=== PATIENT | male | born 1965 | race Caucasian/White ===

== ENCOUNTER 2021-05-09 06:26 | Day surgery (SDC) | payer OTHER ==
[2021-05-06 16:28] VITALS: BMI 28.5
[~2021-05-09 06:26] MED LIST: DEXAMETHASONE SOD PHOSPHATE 4 MG/ML 1 ML VIAL IV ONE; HYDROmorphone 0.5 MG/0.5 ML SYRINGE IVP PRN; LACTATED RINGERS 1,000 ML IV SCH; LIDOCAINE 1% (10MG/ML) FOR IV START INTRADERMA PRN; MIDAZOLAM 2 MG/2 ML VIAL IV PRN; ONDANSETRON 4 MG/2 ML VIAL IVP ONE; Pre Op ABX Message 1 EACH MISC MISCELLANE ONE
[2021-05-09 06:56] VITALS: TEMP 97.5
[2021-05-09] MEDS ORDERED: DEXTROSE 50% SYRINGE 50 ML IVP ONE (07:14)
[2021-05-09 07:19] LABS: Glucose,Whole Blood 69 mg/dL (75-99)
[2021-05-09] MEDS ORDERED: MIDAZOLAM 2 MG/2 ML VIAL ONE (07:20)
[2021-05-09] MEDS ORDERED: PROPOFOL 10 MG/ML 20 ML VIAL IV ONE (07:20)
[2021-05-09] MEDS ORDERED: fentaNYL (PF) 50 MCG/ML 2 ML AMP ONE (07:20)
[2021-05-09] MEDS ORDERED: diphenhydrAMINE 50 MG/ML 1 ML VIAL ONE (07:20)
[2021-05-09 07:23] LABS: Glucose,Whole Blood 92 mg/dL (75-99)
[2021-05-09] MEDS ORDERED: BUPIVACAINE (PF) 0.25% 30 ML VIAL INTRAARTIC ONE (07:32)
--- NOTE | 2021-05-09 08:07 | P.OP ---
Date of Procedure: 05/09/21 Preoperative Diagnosis: 1. Chronic osteomyelitis right foot 2. Charcot arthropathy right foot Postoperative Diagnosis: 1. Same 2. Same Procedure(s) Performed: Bone biopsy of first tarsometatarsal joint right foot Implants: None Anesthesia: MAC, local Surgeon: Joe Mckay Estimated Blood Loss (ml): 2 Pathology: other (Bone biopsy for culture and pathology evaluation right foot) Condition: stable Disposition: PACU Indications for Procedure: Patient has history of diabetes with peripheral neuropathy. The patient was on long-term IV antibiotics with a PICC line for possible osteomyelitis of the right foot. X-ray showed degenerative changes and bony erosions at the conjoining surfaces of the first tarsometatarsal joint right foot. Bone biopsy was scheduled to rule out osteomyelitis versus Charcot arthropathy Description of Procedure: The patient was brought into the operating room placed on table supine position. Timeout was taken to confirm correct patient identifiers, correct site of surgery, and correct procedure. When the room was in agreement the patient was placed under IV sedation. 15 mL of 0.25% Marcaine was injected as a medial midfoot block. The right foot was prepped and draped usual manner. Under fluoroscopic visualization the first tarsometatarsal joint was identified with a metallic marker. Small incision was made through the skin and bluntly dissected down to level joint. A bone biopsy punch was then used to take a large core sample of both the base of the first metatarsal as well as the conjoining surfaces of the medial cuneiform. Samples will be sent for culture and sensit ivity as well as pathology evaluation. Wound is thoroughly irrigated and incision closed with 3-0 nylon. Nonadherent gauze and a dry sterile dressing applied to the right foot. The patient tolerated above procedure and anesthesia well and went to recovery vital signs stable.
[2021-05-09 08:08] LABS: Glucose,Whole Blood 92 mg/dL (75-99)
[2021-05-09 08:45] VITALS: BP 155/78; PULSE 70; RESP 16
== END 2021-05-09 09:16 | disposition home or self-care (01) ==
LOC: OR 06:26
PROVIDERS: ATTEND Podiatrist
DX: M86.671 Other chronic osteomyelitis, right ankle and foot (principal); M14.671 Charcot's joint, right ankle and foot; I10 Essential (primary) hypertension; R00.2 Palpitations; R45.0 Nervousness; E10.9 Type 1 diabetes mellitus without complications; Z82.49 Family history of ischemic heart disease and other diseases of the circulatory system; Z97.2 Presence of dental prosthetic device (complete) (partial); E78.5 Hyperlipidemia, unspecified; Z87.891 Personal history of nicotine dependence; Z79.899 Other long term (current) drug therapy; F41.9 Anxiety disorder, unspecified; F32.A Depression, unspecified; Z79.4 Long term (current) use of insulin; Z79.84 Long term (current) use of oral hypoglycemic drugs; Z98.890 Other specified postprocedural states
CPT/HCPCS: 88307; 88311; 87070; 87205; 87075; 20220; J2250; J1200; J1100; J2405; J3010; J2704

== ENCOUNTER 2021-09-21 08:39 | Emergency (ER) | payer MEDICARE, OTHER ==
[2021-09-21 08:43] VITALS: RESP 18; TEMP 98.1
[2021-09-21] MEDS ORDERED: KETOROLAC 15 MG/ML 1 ML VIAL IM STA (08:53)
[2021-09-21] MEDS ORDERED: ACETAMINOPHEN TAB 325 MG TAB PO STA (08:53)
[2021-09-21 08:56] LABS: Glucose,Whole Blood 215 mg/dL (70-110)
--- NOTE | 2021-09-21 08:57 | ED ---
General Adult HPI - General Chief complaint: Upper Respiratory Infection Stated complaint: covid symptoms Time Seen by Provider: 09/21/21 08:46 Source: patient, RN notes reviewed, old records reviewed Mode of arrival: ambulatory Limitations: no limitations - History of Present Illness Initial comments: 56-year-old male presents to the emergency room with complaints of sore throat, body aches, dry cough and fever/chills for the past 3 days. His significant other tested positive for coronavirus on Wednesday. He states that he did have coronavirus in April 2020. He has not been vaccinated. He denies any chest pain or difficulty in breathing. No difficulty swallowing. He states he has not checked his temperature. He does have a history of diabetes, hypertension and right charcot foot. -: days(s) (3) Severity scale (1-10): 6 Quality: constant Consistency: constant Improves with: none Worsens with: other (cough) Associated Symptoms: cough, fever/chills, other (Sore throat and body aches) Treatments Prior to Arrival: none - Related Data Home Medications Medication Instructions Recorded Confirmed Atorvastatin Calcium [Lipitor] 20 mg PO HS 05/06/21 05/09/21 Insulin Degludec [Tresiba] 35 units SQ W/LUNCH 05/06/21 05/09/21 Insulin NPH Hum/Reg Insulin Hm 30 unit SQ BID 05/06/21 05/09/21 [humuLIN 70/30 Kwikpen] Telmisartan 40 mg PO BID 05/06/21 05/09/21 metFORMIN HCL 500 mg PO BID 05/06/21 05/09/21 Previous Rx's Medication Instructions Recorded HYDROcodone/APAP 5-325MG [[place] 1 tab PO Q6HR PRN #12 tab 05/09/21 5-325] Nirmatrelvir/Ritonavir [Paxlovid 1 each PO BID 5 Days #10 tab 09/21/21 150-100 mg Pack (Eua)] Allergies Allergy/AdvReac Type Severity Reaction Status Date / Time No Known Allergies Allergy Verified 09/21/21 08:43 Review of Systems ROS Statement: Those systems with pertinent positive or pertinent negative responses have been documented in the HPI. ROS Other: All systems not noted in ROS Statement are negative. Past Medical History Past Medical History: Diabetes Mellitus, Hyperlipidemia, Hypertension Additional Past Medical History / Comment(s): RECURRENT RT FOOT INFECTIONS. CURRENTLY HAS SMALL FX IN RT FOOT History of Any Multi-Drug Resistant Organisms: MRSA Date of last positivie culture/infection: 2013 MDRO Source:: RT FOOT Past Surgical History: Ear Surgery, Orthopedic Surgery, Tonsillectomy Additional Past Surgical History / Comment(s): TUBES BILAT EARS. COLONOSCOPY. RT KNEE SX. SEVERAL PICC LINES INSERTED AND REMOVED Past Anesthesia/Blood Transfusion Reactions: Postoperative Nausea & Vomiting (PONV) Past Psychological History: Anxiety, Depression Smoking Status: Former smoker Past Alcohol Use History: Occasional Past Drug Use History: None Reported - Past Family History Mother Family Medical History: No Reported History General Exam Limitations: no limitations General appearance: alert, in no apparent distress Head exam: Present: atraumatic Eye exam: Present: normal appearance, EOMI. Absent: scleral icterus, conjunctival injection, periorbital swelling, periorbital tenderness ENT exam: Present: normal oropharynx, mucous membranes moist Expanded Throat exam: negative: tonsillar erythema, tonsillomegaly, tonsillar exudate, R peritonsillar mass, L peritonsillar mass Neck exam: Present: normal inspection, full ROM. Absent: tenderness, meningismus, lymphadenopathy, thyromegaly Respiratory exam: Present: normal lung sounds bilaterally. Absent: respiratory distress, accessory muscle use Cardiovascular Exam: Present: regular rate GI/Abdominal exam: Present: soft. Absent: distended, tenderness, rigid Extremities exam: Present: normal inspection, full ROM, normal capillary refill. Absent: tenderness, pedal edema Back exam: Absent: tenderness, CVA tenderness (R), CVA tenderness (L) Neurological exam: Present: alert, oriented X3, normal gait Psychiatric exam: Present: normal affect, normal mood Skin exam: Present: warm, dry, normal color. Absent: cyanosis, diaphoretic, petechiae, pallor Course Vital Signs 09/21/21 09/21/21 08:40 10:01 Temperature 98.1 F Pulse Rate 79 74 Respiratory 18 18 Rate Blood Pressure 150/78 138/87 O2 Sat by Pulse 97 99 Oximetry Medical Decision Making - Medical Decision Making On exam patient is afebrile. Lungs sounds are clear to auscultation. Oxygen saturation is 98% on room air. Chest x-ray shows no acute cardiopulmonary process. Patient is positive for coronavirus. He was given a prescription for Paxlovid as requested. Instructed to return to the emergency room with any new or concerning symptoms. Follow-up with primary care doctor as needed. - Lab Data Lab Results 09/21/21 09/21/21 Range/Units 08:54 09:04 POC Glucose (mg/dL) 215 H (70-110) mg/dL POC Glu Medical Accounts Receivable Specialist ID [place] Coronavirus (PCR) Detected A (Not Detectd) Disposition Clinical Impression: COVID-19 Disposition: HOME SELF-CARE Condition: Good Instructions (If sedation given, give patient instructions): COVID-19 (Coronavirus Disease 2019) (ED) Additional Instructions: Take Paxlovid as prescribed. Tylenol and/or Motrin as needed for any body aches, fevers or discomfort. Increase your fluid intake. Follow-up with the primary care doctor next week. Return to the emergency room with any new or concerning symptoms including difficulty breathing or chest pain. Prescriptions: Nirmatrelvir/Ritonavir [Paxlovid 150-100 mg Pack (Eua)] 1 each PO BID 5 Days #10 tab Is patient prescribed a controlled substance at d/c from ED?: No Referrals: Isidro Azul MD [Primary Care Provider] - 1-2 days Time of Disposition: 09:51
--- NOTE | 2021-09-21 09:16 | XR ---
EXAMINATION TYPE: XR chest 2V DATE OF EXAM: 09/21/2021 9:12 AM COMPARISON: None TECHNIQUE: XR chest 2V Frontal and lateral views of the chest. CLINICAL INDICATION:Male, 56 years old with history of fever cough; FINDINGS: Lungs/Pleura: There is no evidence of pleural effusion, focal consolidation, or pneumothorax. Pulmonary vascularity: Unremarkable. Heart/mediastinum: Cardiomediastinal silhouette is unremarkable. Musculoskeletal: No acute osseous pathology. IMPRESSION: No convincing evidence for pneumonia. No Acute cardiopulmonary disease/process.
[2021-09-21 10:03] VITALS: BP 138/87; PULSE 74
== END 2021-09-21 10:00 | disposition home or self-care (01) ==
LOC: EC 08:39
DX: U07.1 COVID-19 (principal); E11.9 Type 2 diabetes mellitus without complications; I10 Essential (primary) hypertension; E78.5 Hyperlipidemia, unspecified; Z87.891 Personal history of nicotine dependence; Z79.4 Long term (current) use of insulin
CPT/HCPCS: 36415; 87635; 71046; 99283; 96372; J1885

== ENCOUNTER 2021-11-22 08:25 | Emergency (ER) | payer MEDICARE, OTHER ==
[2021-11-22 08:33] VITALS: TEMP 98.4
[2021-11-22] MEDS ORDERED: hydrALAZINE HCL 20 MG/ML 1 ML VIAL IVP STA (08:58)
[2021-11-22 09:19] LABS: Basophils % (A) 1 %; Eosinophils # (A) 0.1 k/uL (0-0.7); Eosinophils % (A) 2 %; Lymphocytes # (A) 1.2 k/uL (1.0-4.8); Lymphocytes % (A) 18 %; MCH 28.3 pg (25.0-35.0); MCHC 33.4 g/dL (31.0-37.0); MCV 84.8 fL (80.0-100.0); Mean Platelet Volume 7.6; Monocytes # (A) 0.3 k/uL (0-1.0); Monocytes % (A) 4 %; Neutrophils # (A) 4.9 k/uL (1.3-7.7); Neutrophils % (A) 73 %; Platelet Count 305 k/uL (150-450); RBC 4.61 m/uL (4.30-5.90); RDW 12.8 % (11.5-15.5); WBC 6.7 k/uL (3.8-10.6)
--- NOTE | 2021-11-22 09:25 | ED ---
General Adult HPI - General Chief complaint: Headache Stated complaint: pain in head, no injury Time Seen by Provider: 11/22/21 08:30 Source: patient, RN notes reviewed, old records reviewed Mode of arrival: ambulatory Limitations: no limitations - History of Present Illness Initial comments: This a 56-year-old male who presents emergency Department complaining of intermittent headaches for the last 5 days. Patient states he had COVID diagnosis 3 weeks ago. Patient states since then he continues to have a dry cough but no real shortness of breath. Patient states he has been experiencing had pain in the left occipital region that last about 2-3 minutes and go away and then come back. Patient states this occurs all day long for the last 5 days . Patient denies any blurred vision. Patient denies any numbness weakness. Patient denies any nausea vomiting. Patient denies any recent injury or trauma. Patient denies any recent fever chills. Patient denies being short of breath per patient denies chest pain or palpitations. Patient denies any syncopal or near syncopal episodes. Patient currently is not having any headache - Related Data Home Medications Medication Instructions Recorded Confirmed Atorvastatin Calcium [Lipitor] 20 mg PO HS 05/06/21 05/09/21 Insulin Degludec [Tresiba] 35 units SQ W/LUNCH 05/06/21 05/09/21 Insulin NPH Hum/Reg Insulin Hm 30 unit SQ BID 05/06/21 05/09/21 [humuLIN 70/30 Kwikpen] Telmisartan 40 mg PO BID 05/06/21 05/09/21 metFORMIN HCL 500 mg PO BID 05/06/21 05/09/21 Previous Rx's Medication Instructions Recorded HYDROcodone/APAP 5-325MG [[place] 1 tab PO Q6HR PRN #12 tab 05/09/21 5-325] Nirmatrelvir/Ritonavir [Paxlovid 1 each PO BID 5 Days #10 tab 09/21/21 150-100 mg Pack (Eua)] Allergies Allergy/AdvReac Type Severity Reaction Status Date / Time No Known Allergies Allergy Verified 11/22/21 08:29 Review of Systems ROS Statement: Those systems with pertinent positive or pertinent negative responses have been documented in the HPI. ROS Other: All systems not noted in ROS Statement are negative. Past Medical History Past Medical History: Diabetes Mellitus, Hyperlipidemia, Hypertension Additional Past Medical History / Comment(s): RECURRENT RT FOOT INFECTIONS. CURRENTLY HAS SMALL FX IN RT FOOT History of Any Multi-Drug Resistant Organisms: MRSA Date of last positivie culture/infection: 2013 MDRO Source:: RT FOOT Past Surgical History: Ear Surgery, Orthopedic Surgery, Tonsillectomy Additional Past Surgical History / Comment(s): TUBES BILAT EARS. COLONOSCOPY. RT KNEE SX. SEVERAL PICC LINES INSERTED AND REMOVED Past Anesthesia/Blood Transfusion Reactions: Postoperative Nausea & Vomiting (PONV) Past Psychological History: Anxiety, Depression Smoking Status: Former smoker Past Alcohol Use History: Occasional Past Drug Use History: None Reported - Past Family History Mother Family Medical History: No Reported History General Exam - General Exam Comments Initial Comments: GENERAL: Patient is well-developed and well-nourished. Patient is nontoxic and well- hydrated and is in no acute distress. ENT: Neck is soft and supple. No significant lymphadenopathy is noted. Oropharynx is clear. Moist mucous membranes. Neck has full range of motion without eliciting any pain. EYES: The sclera were anicteric and conjunctiva were pink and moist. Extraocular movements were intact and pupils were equal round and reactive to light. Eyelids were unremarkable. PULMONARY: Unlabored respirations. Good breath sounds bilaterally. No audible rales rhonchi or wheezing was noted. CARDIOVASCULAR: There is a regular rate and rhythm without any murmurs gallops or rubs. ABDOMEN: Soft and nontender with normal bowel sounds. SKIN: Skin is clear with no lesions or rashes and otherwise unremarkable. NEUROLOGIC: Patient is alert and oriented x3. Cranial nerves II through XII are grossly intact. Motor and sensory are also intact. Normal speech, volume and content. Symmetrical smile. MUSCULOSKELETAL: Normal extremities with adequate strength and full range of motion. LYMPHATICS: No significant lymphadenopathy is noted PSYCHIATRIC: Normal psychiatric evaluation. Limitations: no limitations Course Vital Signs 11/22/21 11/22/21 11/22/21 08:29 08:43 10:01 Temperature 98.4 F Pulse Rate 92 75 73 Respiratory 16 18 18 Rate Blood Pressure 175/116 193/110 127/77 O2 Sat by Pulse 99 99 100 Oximetry 11/22/21 10:22 Temperature Pulse Rate 74 Respiratory 16 Rate Blood Pressure O2 Sat by Pulse 98 Oximetry Medical Decision Making - Medical Decision Making EKG shows sinus rhythm at 73 bpm UT interval 170 QRS 106 QT interval 370 QTC is 44. Patient's EKG shows no ST segment elevation or depression. - Lab Data Result diagrams: 11/22/21 09:07 11/22/21 09:07 Lab Results 11/22/21 11/22/21 Range/Units 09:07 09:07 WBC 6.7 (3.8-10.6) k/uL RBC 4.61 (4.30-5.90) m/uL Hgb 13.0 (13.0-17.5) gm/dL Hct 39.0 (39.0-53.0) % MCV 84.8 (80.0-100.0) fL MCH 28.3 (25.0-35.0) pg MCHC 33.4 (31.0-37.0) g/dL RDW 12.8 (11.5-15.5) % Plt Count 305 (150-450) k/uL MPV 7.6 Neutrophils % 73 % Lymphocytes % 18 % Monocytes % 4 % Eosinophils % 2 % Basophils % 1 % Neutrophils # 4.9 (1.3-7.7) k/uL Lymphocytes # 1.2 (1.0-4.8) k/uL Monocytes # 0.3 (0-1.0) k/uL Eosinophils # 0.1 (0-0.7) k/uL Basophils # 0.0 (0-0.2) k/uL Sodium 132 L (137-145) mmol/L Potassium 4.3 (3.5-5.1) mmol/L Chloride 101 (98-107) mmol/L Carbon Dioxide 23 (22-30) mmol/L Anion Gap 8 mmol/L BUN 30 H (9-20) mg/dL Creatinine 1.21 (0.66-1.25) mg/dL Est GFR (CKD-EPI)AfAm 76 (>60 ml/min/1.73 sqM) Est GFR (CKD-EPI)NonAf 66 (>60 ml/min/1.73 sqM) Glucose 312 H (74-99) mg/dL Calcium 9.5 (8.4-10.2) mg/dL Total Bilirubin 0.8 (0.2-1.3) mg/dL AST 19 (17-59) U/L ALT 20 (4-49) U/L Alkaline Phosphatase 74 (38-126) U/L Total Protein 5.9 L (6.3-8.2) g/dL Albumin 3.2 L (3.5-5.0) g/dL Disposition Clinical Impression: Cephalgia, Hypertension Disposition: HOME SELF-CARE Condition: Good Additional Instructions: Patient should increase his metoprolol to twice a day. Is patient prescribed a controlled substance at d/c from ED?: No Referrals: Isidro Azul MD [Primary Care Provider] - 1-2 days Time of Disposition: 10:37
--- NOTE | 2021-11-22 09:31 | XR ---
EXAMINATION TYPE: XR chest 2V DATE OF EXAM: 11/22/2021 COMPARISON: 09/21/2021 HISTORY: Shortness of breath TECHNIQUE: Frontal and lateral views of the chest are obtained. FINDINGS: There is no focal air space opacity, pleural effusion, or pneumothorax seen. The cardiac silhouette size is within normal limits. The osseous structures are intact. IMPRESSION: No acute cardiopulmonary process.
--- NOTE | 2021-11-22 09:34 | CT ---
Head CT without contrast. HISTORY: Headache. COMPARISON: None. TECHNIQUE: Multiple axial images are obtained from the skull base to vertex without use of IV contras t material. FINDINGS: The ventricles, basal cisterns and sulci over the convexities are within normal limits and there is n o mass effect or shift of the midline structures. No abnormal density is seen throughout the brain parenchyma and there is no acute intra or extra-axia l hemorrhage. The posterior fossa including the brainstem, fourth ventricle, cerebellar pontine angles appear iris l. The intraorbital contents appear normal and symmetric. Visualized paranasal sinuses and mastoid air cells are well aerated. The calvarium is intact. IMPRESSION: No significant abnormality seen. No acute bleed or mass effect.
[2021-11-22 09:35] LABS: Albumin 3.2 g/dL (3.5-5.0); Calcium 9.5 mg/dL (8.4-10.2); Potassium 4.3 mmol/L (3.5-5.1); Total Bilirubin 0.8 mg/dL (0.2-1.3); Total Protein 5.9 g/dL (6.3-8.2)
[2021-11-22] MEDS ORDERED: SODIUM CHLORIDE 0.9% 500 ML 500 ML IV ONE (10:14)
[2021-11-22] MEDS ORDERED: KETOROLAC 15 MG/ML 1 ML VIAL IVP STA (10:14)
[2021-11-22 10:23] VITALS: RESP 16
[2021-11-22 11:08] VITALS: BP 127/78; PULSE 77
== END 2021-11-22 11:05 | disposition home or self-care (01) ==
LOC: EC 08:25
DX: R51.9 Headache, unspecified (principal); I10 Essential (primary) hypertension; E11.9 Type 2 diabetes mellitus without complications; E78.5 Hyperlipidemia, unspecified; F41.9 Anxiety disorder, unspecified; F32.A Depression, unspecified; Z87.891 Personal history of nicotine dependence; Z79.02 Long term (current) use of antithrombotics/antiplatelets; Z79.4 Long term (current) use of insulin; Z79.83 Long term (current) use of bisphosphonates; Z79.84 Long term (current) use of oral hypoglycemic drugs
CPT/HCPCS: 99284 ×2; 96374 ×2; 96375 ×2; 96361 ×2; 36415; 93005; 80053; 85025; 71046; 70450; J0360; J1885

== ENCOUNTER 2022-02-26 16:37 | Emergency (ER) | payer MEDICARE, OTHER ==
[2022-02-26] MEDS ORDERED: ASPIRIN 81 MG PO STA (16:44)
[2022-02-26] MEDS ORDERED: NITROGLYCERIN SL TABS 0.4 MG TAB SUBLINGUAL STA (16:44)
[2022-02-26 16:47] VITALS: RESP 17
[2022-02-26 17:01] LABS: Glucose,Whole Blood 92 mg/dL (70-110)
--- NOTE | 2022-02-26 17:04 | ED ---
General Adult HPI - General Chief complaint: Recheck/Abnormal Lab/Rx Stated complaint: hypoglycemia Time Seen by Provider: 02/26/22 16:44 Source: patient, EMS Mode of arrival: EMS Limitations: no limitations - History of Present Illness Initial comments: Dictation was produced using [employer] dictation software. please excuse any grammatical, word or spelling errors. Chief Complaint: 57-year-old male presents emergency department for hyperglycemia History of Present Illness: 57-year-old male used just prescribed a insulin pump. His pump on for the second time. He passed out at home when his friend was there. She called EMS. EMS found patient hypoglycemic. Is given 2 A of glucose and some oral glucose and take with improvement to the 70s. Patient states he felt fine prior to the episode. Denies any complaints at this time. The ROS documented in this emergency department record has been reviewed and confirmed by me. Those systems with pertinent positive or negative responses have been documented in the HPI. All other systems are other negative and/or noncontributory. PHYSICAL EXAM: General Impression: Alert and oriented x3, not in acute distress HEENT: Normocephalic atraumatic, extra-ocular movements intact, pupils equal and reactive to light bilaterally, mucous membranes moist. Cardiovascular: Heart regular rate and rhythm Chest: Able to complete full sentences, no retractions, no tachypnea Abdomen: abdomen soft, non-tender, non-distended, no organomegaly Musculoskeletal: Pulses present and equal in all extremities, no peripheral edema Motor: no focal deficits noted Neurological: CN II-XII grossly intact, no focal motor or sensory deficits noted Skin: Intact with no visualized rashes Psych: Normal affect and mood ED course: 57-year-old male presents to the emergency department for hypoglycemic episode. Likely overdose on insulin with his insulin pump. Vital signs upon arrival are within acceptable limits. Nursing notes and chart review was performed Patient's insulin pump was removed. Blood glucose monitored. Patient observed in emergency department for approximately 3 hours and 30 minutes. Reevaluated at bedside at 8:07 PM on a be stable medical condition. Patient told to discontinue his insulin pump. He did notify his doctor told him to use injections in the meantime. Patient discharged. Was pt. sent in by a medical professional or institution (, PA, HEAD SOFT SUGAR OPERATOR, urgent care, hospital, or usp...) When possible be specific @ -EMS Did you speak to anyone other than the patient for history (EMS, parent, family, police, friend...)? What history was obtained from this source @ -No Did you review nursing and triage notes (agree or disagree)? Why? @ -I reviewed and agree with nursing and triage notes Were old charts reviewed (outside hosp., previous admission, EMS record, old EKG, old radiological studies, urgent care reports/EKG's, usp records)? Report findings @ -No old charts were reviewed Differential Diagnosis (chest pain, altered mental status, abdominal pain women, abdominal pain men, vaginal bleeding, weakness, fever, dyspnea, syncope, headache, dizziness, GI bleed, back pain, seizure, CVA, palpatations, mental health)? @ -not applicable EKG interpreted by me (3pts min.). @ -None done X-rays interpreted by me (1pt min.). @ -None done CT interpreted by me (1pt min.). @ -None done U/S interpreted by me (1pt. min.). @ -None done What testing was considered but not performed or refused? (CT, X-rays, U/S, labs)? Why? @ -None What meds were considered but not given or refused? Why? @ -None Did you discuss the management of the patient with other professionals (professionals i.e. , PA, HEAD SOFT SUGAR OPERATOR, lab, RT, psych nurse, psychotherapist social worker, television installer helper, teacher, chief sustainability officer, bilingual patient support caseworker)? Give summary @ -No Was smoking cessation discussed for >3mins.? @ -No Was critical care preformed (if so, how long)? @ -No Were there social determinants of health that impacted care today? How? (Homelessness, low income, unemployed, alcoholism, drug addiction, transportation, low edu. Level, literacy, decrease access to med. care, [facility], rehab)? @ -No Was there de-escalation of care discussed even if they declined (Discuss DNR or withdrawal of care, Hospice)? DNR status @ -No What co-morbidities impacted this encounter? (DM, HTN, Smoking, COPD, CAD, Cancer, CVA, ARF, Chemo, Hep., AIDS, mental health diagnosis, sleep apnea, morbid obesity)? @ -None Was patient admitted / discharged? Hospital course, mention meds given and route, prescriptions, significant lab abnormalities, going to OR and other pertinent info. @ -See above Undiagnosed new problem with uncertain prognosis? @ -No Drug Therapy requiring intensive monitoring for toxicity (Heparin, Nitro, Insulin, Cardizem)? @ -No Were any procedures done? @ -No Diagnosis/symptom? @ -Hyperglycemia with insulin toxicity Acute, or Chronic, or Acute on Chronic? @ -Acute Uncomplicated (without systemic symptoms) or Complicated (systemic symptoms)? @ -default Side effects of treatment? @ -No Exacerbation, Progression, or Severe Exacerbation? @ -No Poses a threat to life or bodily function? How? (Chest pain, [place], [place], pneumonia, PE, COPD, DKA, ARF, appy, cholecystitis, CVA, Diverticulitis, Homicidal, Suicidal, threat to staff... and all critical care pts) @ -yes - Related Data Home Medications Medication Instructions Recorded Confirmed Glucagon [Gvoke Pfs 1-Pack Syringe] 1 mg SQ ONCE PRN 02/26/22 02/26/22 Insulin Aspart [NovoLOG Flexpen] 8 units SQ AC-TID MDD 40 UNITS 02/26/22 02/26/22 Insulin Aspart [NovoLOG Flexpen] See Protocol SQ AC-TID PRN MDD 40 02/26/22 02/26/22 UNITS Rosuvastatin [Crestor] 10 mg PO DAILY 02/26/22 02/26/22 carvediloL 25 mg PO BID 02/26/22 02/26/22 lisinopriL [Prinivil] 20 mg PO DAILY 02/26/22 02/26/22 Allergies Allergy/AdvReac Type Severity Reaction Status Date / Time No Known Allergies Allergy Verified 02/26/22 17:58 Review of Systems ROS Statement: Those systems with pertinent positive or pertinent negative responses have been documented in the HPI. ROS Other: All systems not noted in ROS Statement are negative. Past Medical History Past Medical History: Diabetes Mellitus, Hyperlipidemia, Hypertension Additional Past Medical History / Comment(s): RECURRENT RT FOOT INFECTIONS, Type 1. CURRENTLY HAS SMALL FX IN RT FOOT History of Any Multi-Drug Resistant Organisms: MRSA Date of last positivie culture/infection: 2013 MDRO Source:: RT FOOT Past Surgical History: Ear Surgery, Orthopedic Surgery, Tonsillectomy Additional Past Surgical History / Comment(s): TUBES BILAT EARS. COLONOSCOPY. RT KNEE SX. SEVERAL PICC LINES INSERTED AND REMOVED Past Anesthesia/Blood Transfusion Reactions: Postoperative Nausea & Vomiting (PONV) Past Psychological History: Anxiety, Depression Smoking Status: Former smoker Past Alcohol Use History: Occasional Past Drug Use History: None Reported - Past Family History Mother Family Medical History: No Reported History General Exam Limitations: no limitations Course Vital Signs 02/26/22 02/26/22 02/26/22 16:43 17:18 17:29 Temperature 94.4 F L Pulse Rate 48 L 49 L Respiratory 17 17 Rate Blood Pressure 193/95 150/89 O2 Sat by Pulse 100 100 Oximetry 02/26/22 19:35 Temperature 97.6 F Pulse Rate 61 Respiratory 17 Rate Blood Pressure 173/81 O2 Sat by Pulse 100 Oximetry Medical Decision Making - Lab Data Lab Results 02/26/22 02/26/22 02/26/22 Range/Units 16:59 18:07 19:12 POC Glucose (mg/dL) 92 190 H 327 H (70-110) mg/dL POC Glu Pound Attendant Rebecca Bang, Rebecca Sam Disposition Clinical Impression: Hypoglycemia Disposition: HOME SELF-CARE Condition: Good Instructions (If sedation given, give patient instructions): Hypoglycemia in a Person with Diabetes (ED) Is patient prescribed a controlled substance at d/c from ED?: No Referrals: Isidro Azul MD [Primary Care Provider] - 1-2 days Time of Disposition: 20:08
[2022-02-26 18:11] LABS: Glucose,Whole Blood 190 mg/dL (70-110)
[2022-02-26 19:16] LABS: Glucose,Whole Blood 327 mg/dL (70-110)
[2022-02-26 19:35] VITALS: BP 173/81; PULSE 61; TEMP 97.6
== END 2022-02-26 20:15 | disposition home or self-care (01) ==
LOC: EC 16:37
DX: E10.649 Type 1 diabetes mellitus with hypoglycemia without coma (principal); E78.5 Hyperlipidemia, unspecified; I10 Essential (primary) hypertension; F41.9 Anxiety disorder, unspecified; F32.A Depression, unspecified; Z79.4 Long term (current) use of insulin; Z87.891 Personal history of nicotine dependence; Z79.899 Other long term (current) drug therapy
CPT/HCPCS: 36415; 99285